=== PATIENT | female | born 1995 | race Caucasian/White ===

== ENCOUNTER 2020-10-25 11:29 | Inpatient (IN) | payer MEDICAID, OTHER ==
[~2020-10-25] VITALS: Ht 149.9 cm; Wt 76.4 kg
--- NOTE | 2020-10-25 12:05 | NUR ---
fht's by doppler 156
--- NOTE | 2020-10-25 12:20 | NUR ---
PT BIB EMS FOR SYNCOPLE EPISODE. PT WAS LOWERED SAFILY INTO CHAIR BY FAMILY MEMBER. PT IS 20 WEEKS PREG. PT REPORTS MINOR CRAMPING BUT DENIES BLEEDING. L&d CALLED TO ASSESS FHT. PT RESTING IN [facility]. EKG COMPLETE. BLANKET PROVIDED
[2020-10-25 12:54] LABS: BASOPHILS % (AUTO) 0 % (0-1); EOSINOPHILS % (AUTO) 1 % (1-7); LYMPHOCYTES % (AUTO) 13 % (22-44); MEAN CORPUSCULAR HEMOGLOBIN 29.8 pg (27.0-34.8); MEAN CORPUSCULAR HGB CONC 34.6 g/dL (32.4-35.8); MEAN PLATELET VOLUME 8.8 fL (7.4-10.4); MONOCYTES % (AUTO) 3 % (2-9); NEUTROPHILS % (AUTO) 82 % (42-75); PLATELET COUNT 196 x10^3/uL (130-400); RED BLOOD COUNT 4.44 x10^6/uL (3.82-5.3); RED CELL DISTRIBUTION WIDTH 13.1 % (9.6-15.2)
[2020-10-25 13:00] LABS: MICROSCOPIC INDICATED
[2020-10-25 13:05] LABS: CHLORIDE 108 mmol/L (98-107)
[2020-10-25 13:13] LABS: ALANINE AMINOTRANSFERASE 17 U/L (12-78); ALBUMIN 2.8 g/dL (3.4-5.0); ALKALINE PHOSPHATASE 66 U/L (45-117); ANION GAP 7 mmol/L (5-15); BILIRUBIN,TOTAL 0.3 mg/dL (0.2-1.0); CALCIUM 8.6 mg/dL (8.5-10.1); CREATININE 0.56 mg/dL (0.55-1.02); TOTAL PROTEIN 6.8 g/dL (6.4-8.2); TROPONIN I < 0.015 ng/mL (0.000-0.045)
[2020-10-25] MEDS ORDERED: CEFDINIR 300 MG CAPSULE PO ONE (14:00)
[2020-10-25] MEDS ORDERED: CEFDINIR 300 MG CAPSULE ONE (14:08)
[2020-10-25] MEDS ORDERED: CEFTRIAXONE 1,000 MG IV SCH (14:30)
[2020-10-25] MEDS ORDERED: ACETAMINOPHEN 325 MG TABLET PO PRN (14:30)
[2020-10-25] MEDS ORDERED: ONDANSETRON ODT 4 MG PO PRN (14:30)
[2020-10-25] MEDS ORDERED: ONDANSETRON 2MG/ML, 2ML IVPush PRN (14:30)
[2020-10-25 14:52] VITALS: BP 100/66
[2020-10-25] MEDS ORDERED: CEFTRIAXONE 1,000 MG in DEXTROSE 5% 50 ML IVPB SCH (15:00)
[2020-10-25 16:00] VITALS: BP 105/65
[2020-10-25] MEDS: SODIUM CHLORIDE 0.9% 1,000 ML IV SCH (16:00)
[2020-10-25 16:02] VITALS: BP 114/75
[2020-10-25] MEDS ORDERED: POTASSIUM CHLORIDE 20 MEQ TAB.ER.PRT PO ONE (18:00)
[2020-10-25 18:54] VITALS: BP 103/67
[2020-10-25 18:59] VITALS: BP 105/69
[2020-10-25 19:00] VITALS: BP 102/67
[2020-10-26 00:05] VITALS: BP 97/55
[2020-10-26 08:00] VITALS: BP 108/72
[2020-10-26] MEDS: SODIUM CHLORIDE 0.9% 1,000 ML IV SCH (08:16)
[2020-10-26 08:48] LABS: ANION GAP 7 mmol/L (5-15); CALCIUM 8.7 mg/dL (8.5-10.1); CHLORIDE 111 mmol/L (98-107); CREATININE 0.51 mg/dL (0.55-1.02)
[2020-10-26] MEDS ORDERED: PRENATAL VIT/IRON/FA 1 EACH TABLET PO SCH (09:00)
[2020-10-26] MEDS ORDERED: CEFD300C37 PO (09:47)
[2020-10-26] MEDS ORDERED: PREN-75 PO (09:47)
== END 2020-10-26 12:13 | disposition home or self-care (01) | DRG 831 ==
LOC: ED 12:01 → EDIP 13:48 → 3N 14:46 → DCLOUNGE 10-26 12:08
PROVIDERS: ADMIT Internal Medicine; ATTEND Internal Medicine
DX: O98.812 Other maternal infectious and parasitic diseases complicating pregnancy, second trimester (principal); A41.9 Sepsis, unspecified organism; O23.42 Unspecified infection of urinary tract in pregnancy, second trimester; E87.6 Hypokalemia; G47.00 Insomnia, unspecified; O99.282 Endocrine, nutritional and metabolic diseases complicating pregnancy, second trimester; W18.39XA Other fall on same level, initial encounter; O99.352 Diseases of the nervous system complicating pregnancy, second trimester; Z3A.18 18 weeks gestation of pregnancy; Y93.89 Activity, other specified; Y92.89 Other specified places as the place of occurrence of the external cause; Y99.8 Other external cause status
CPT/HCPCS: 36415; 76815; 80048; 80053; 81001; 83605; 84484; 85025; 87086; 93005; 93306; G0378; J0696; J7030